=== PATIENT | male | born 1965 | race Caucasian/White ===

== ENCOUNTER 2022-01-22 12:49 | Emergency (ER) | payer MEDICARE, SELFPAY ==
[2022-01-22 12:52] VITALS: BP 163/88; PULSE 86; RESP 15; TEMP 36.7; O2SAT 98; BMI 34.0
[2022-01-22 12:58] VITALS: BP 163/88; PULSE 84; RESP 16; O2SAT 96
--- NOTE | 2022-01-22 13:42 | CT_ITS ---
STUDY: CT BRAIN WITHOUT CONTRAST REASON FOR EXAM: Male, 56 years old. Confusion RADIATION DOSAGE (If Supplied By Facility): CTDIvol = ( 47.06 ) mGy, DLP = ( 890.33 ) mGycm TECHNIQUE: Transaxial CT imaging of the brain was performed without administration of intravenous contrast material. Individualized dose optimization techniques were used for this CT. COMPARISON: No relevant priors. FINDINGS: Normal soft tissue structures. Normal calvarium. There is mild cerebral atrophy with widening of the extra-axial spaces and ventricular dilatation. There are areas of decreased attenuation within the white matter tracts of the supratentorial brain, consistent with microvascular disease changes. Findings suggestive several old lacunar infarcts in the basal ganglia and thalami. Normal brainstem. Normal cerebellum. There is no intracranial hemorrhage. There are no findings of an acute ischemic infarction. Atherosclerotic calcification of the cavernous portions of the internal carotid arteries bilaterally. Normal visualized paranasal sinuses. CT/Brain/Head without Contrast IMPRESSION: Chronic involutional changes of the brain. Electronically Signed: Soren Rodriguez MD at 15:16 EDT ,
--- NOTE | 2022-01-22 13:42 | EKG12_ITS ---
Test Reason : Blood Pressure : / mmHG Vent. Rate : 084 BPM Atrial Rate : 084 BPM P-R Int : 170 ms QRS Dur : 120 ms QT Int : 382 ms P-R-T Axes : 061 -75 082 degrees QTc Int : 451 ms Normal sinus rhythm Left anterior fascicular block Septal infarct , age undetermined Abnormal ECG Confirmed by YEMI BURT, BIB ([id number]), news copy editor AJ MURRELL ([id number]) on 01/24/2022 10:22:49 AM Referred By: ANITA Confirmed By:BIB BRAGG MD
--- NOTE | 2022-01-22 13:48 | EX.ED.DYSGE1 ---
HPI History of Present Illness Chief Complaint: Confusion Informant: patient and other Narrative Narrative: Slightly through the patient. The nurse taking care of him also was given report. He has been at [facility] for about 2 days. He has been reported as being alert and oriented x0 that whole time. He was transferred recently from [facility]. In the report they got they were told he was alert and oriented x2. However, they looked at the charting that came with him and it documents more that he is alert and oriented x0 at baseline. Therefore, he appears to be at his baseline. He was sent in here for confusion yet all indication is a he is at his baseline. He was also sent in here because he refused dialysis. He states he refused dialysis because he is already okay. He cannot elaborate more. When I talked to the patient he can tell me his name and the year and he is accurate. He cannot tell me the month or the president. But he is, in fact, alert and oriented x2. He has no complaints. He is a bit fidgety and slightly agitated but not aggressive. I note that he is on some medications for this. I also note that he has history of metabolic encephalopathy and vascular dementia along with his renal failure. [facility] Medical History (Updated 01/22/22 @ 15:[address] Ramsey Marley MD) Diabetes Dialysis patient Gastroparesis Hyperlipidemia Hyperparathyroidism due to end stage renal disease on dialysis Hypertension Kidney disease Metabolic encephalopathy Right below-knee amputee Stroke/cerebrovascular accident Vascular dementia Allergy/AdvReac Type Severity Reaction Status Date / Time Penicillins Allergy NEEDS Verified 01/22/22 12:52 FOLLOW-UP Social History Smoking Status: Never smoker ROS ROS ED ROS Narrative Patient denies all but due to his mental status I do not know if I am getting the accurate report. I am not able to get what I feel is a consistent and true review of systems EXAM Physical Exam Const Vital Signs: 01/22/22 12:52 01/22/22 12:58 Temperature 98.1 F Temperature Source Temporal Pulse Rate 86 84 Respiratory Rate 15 16 Blood Pressure 163/88 H 163/88 H Blood Pressure Mean 113 113 Pulse Ox 98 96 Oxygen Delivery Method Room Air Room Air Positive well nourished and well developed General Appearance ED: well developed and NAD; Negative for cyanotic or diaphoretic HEENT Reports moist mucous membranes Negative for trauma or tenderness Eyes General Eye ED: Negative for pale conjunctiva or scleral icterus Neck no JVD Chest Wall inspection of chest normal Resp normal respiratory effort and clear to auscultation bilaterally Auscultation: Negative for rales Cardio regular rate GI normal to inspection, nondistended, normoactive bowel sounds and non-tender Palpation: soft Back/Spine no CVA tenderness Extremity Extremity Narrative: Amputation right below the knee. Palpable dialysis access left upper extremity with good thrill. Neuro Neuro Narrative: Patient is actually oriented to his name and the year 2021. He cannot tell me the month but is frustrating that I am asking that again. He does not know the president. He cannot carry on a reasonable conversation but he is clearly a and O x2. Sensorium / Orientation: alert Psych Psych Narrative: Patient is mildly agitated. He is not at all aggressive. But he is fidgeting. He reaches out and holds and pats people. Skin no rashes or lesions noted MDM MDM MDM Narrative Medical decision making narrative: Patient's blood work showed normal white count hemoglobin. Electrolytes showed minimally decreased sodium. However his potassium is normal. Creatinine is quite high consistent with known renal failure. Glucose is 145. Calcium is also a little bit high. Troponin is negative. CT shows chronic changes of the brain. Chest x-ray shows mild cardiac enlargement. EKG shows nonspecific findings. Patient is at a nursing facility with dialysis capabilities. He does not need to stay in the hospital for dialysis. I have no indication by history exam or work-up that the patient has an acute decompensating illness. He is alert and oriented x2. This sounds equal or better than what he has been recently. I think he is safe to go back and continued his care at [facility]. I also note that his wristband lists him as DNR comfort care only. His chart and paperwork lists him as full code. We contacted the nursing center he is actually DNR Comfort Care arrest and they are sending paperwork to substantiate this. Lab Data Attestation: I reviewed the patient's lab results. Labs: Laboratory Results - last 24 hr 01/22/22 01/22/22 14:29 14:29 WBC 5.7 RBC 4.17 L Hgb 13.1 Hct 37.8 L MCV 90.6 MCH 31.4 MCHC 34.7 RDW Std Deviation 44.7 H RDW Coeff of Graciela 13.5 Plt Count 133 L MPV 10.4 Immature Gran % (Auto) 0.200 Neut % (Auto) 68.0 Lymph % (Auto) 17.4 L [place] % (Auto) 9.5 Eos % (Auto) 4.4 Baso % (Auto) 0.5 Absolute Neuts (auto) 3.9 Absolute Lymphs (auto) 0.99 Nucleated RBC % 0 Sodium 132 L Potassium 4.8 Chloride 97 L Carbon Dioxide 28.0 Anion Gap 7 BUN 46 H Creatinine 8.79 H* Estim Creat Clear Calc 8.47 Est GFR (MDRD) Af Amer 8 L Est GFR (MDRD) Non-Af 7 L BUN/Creatinine Ratio 5.2 L Glucose 145 H Calcium 10.4 H Troponin I High Sens 26 Radiography Diagnostic Testing: Clinical Impression(s) from Imaging Studies Brain CT 01/22/22 13:42 IMPRESSION: Chronic involutional changes of the brain. Electronically Signed: Soren Rodriguez MD at 15:16 EDT , Chest X-Ray 01/22/22 14:25 IMPRESSION: Mild cardiac enlargement. Electronically Signed: Soren Rodriguez MD at 15:24 EDT , EKG Initial EKG: Comments: EKG done as part of medical work-up read by me shows a normal sinus rhythm with overall rate of 84. No ectopy. Mild diffuse baseline changes. Slight LA elevation but still concave ST segments anteriorly. LA interval is normal. QRS duration is upper limit of normal. QTc is normal. I do not have an old for comparison. However we did order a troponin also with this. Discharge Plan Triage Chief Complaint: Confusion ED Provider: Ramsey Marley Dx/Rx/DC Orders Clinical Impression: Chronic renal failure, Transient confusion Instructions: ED Chronic Kidney Disease (CKD), ED Confusion Primary Care Provider: Jessica Hart Referrals: Jessica Hart MD [Primary Care Provider] - Keep Devendra appointment Disposition Disposition: Senior Living Facility Discharge Location: [facility]
--- NOTE | 2022-01-22 14:25 | RAD_ITS ---
STUDY: X-RAY CHEST REASON FOR EXAM: Male, 56 years old. Trauma TECHNIQUE: Single AP portable view of the chest. COMPARISON: None. FINDINGS: The lungs are clear and expanded. There is no demonstrated pleural abnormality. There is mild cardiac enlargement. Normal mediastinum and elis. Normal visualized pulmonary arteries. Normal visualized aortic arch and descending thoracic aorta. There are degenerative changes of the visualized thoracic spine. Normal visualized ribs, clavicles, and shoulders. There is no demonstrated abnormality of the visualized soft tissue structures of the upper abdomen. RAD/Chest 1 View (Portable) IMPRESSION: Mild cardiac enlargement. Electronically Signed: Soren Rodriguez MD at 15:24 EDT ,
[2022-01-22 14:37] LABS: Absolute Lymphocyte Count 0.99 X10^3/uL (0.83-4.51); Absolute Neutrophil Count 3.9 X10^3/uL (2.0-7.7); Basophil# 0.03 X10^3/uL; Basophil% 0.5 % (0-1); Eosinophil# 0.25 X10^3/uL; Eosinophils% 4.4 % (0-5); Hematocrit 37.8 % (40-54); Hemoglobin 13.1 g/dL (13.0-16.5); Lymphocyte # 0.99 X10^3/ul (0.83-4.51); Lymphocyte % 17.4 % (19-41); Mean Corp Hgb Conc 34.7 g/dL (32-36); Mean Corpuscular Hgb 31.4 pg (27.0-32.0); Mean Corpuscular Volume 90.6 fL (80-94); Mean Platelet Vol. 10.4 fl (6.2-12.0); Monocyte# 0.54 X10^3/uL; Monocyte% 9.5 % (0-10); NRBC Flagged by Analyzer 0 % (0-5); Neutrophil # 3.87 X10^3/uL (2.7-7.7); Platelet Count 133 K/mm3 (150-450); RBC Distribution Width CV 13.5 % (11.6-14.6); RBC Distribution Width SD 44.7 fl (35.1-43.9); Red Blood Count 4.17 M/mm3 (4.6-6.2); White Blood Count 5.7 K/mm3 (4.4-11.0)
[2022-01-22] MEDS: LORazepam 2 MG/ML Syringe 0.5 MG IV (14:38)
[2022-01-22 14:58] LABS: Anion Gap 7 (5-15); BUN 46 mg/dL (7-18); BUN/Creat Ratio 5.2 RATIO (10-20); Calcium,Total 10.4 mg/dL (8.5-10.1); Chloride 97 mmol/L (98-107); Creatinine, Serum 8.79 mg/dL (0.70-1.30); EST Glomerular Filtration Rate 7 mL/min (>60); Est Glom Filt Rate - Afr Amer 8 mL/min (>60); Estimated Creatinine Clearance 8.47 ml/min; Glucose 145 mg/dL (74-106); Potassium 4.8 mmol/L (3.5-5.1); Sodium Level 132 mmol/L (136-145); Troponin-I HS 26 pg/mL (3.0-78.0)
[2022-01-22 15:36] VITALS: PULSE 82; RESP 16; O2SAT 98
--- NOTE | 2022-01-22 15:37 | ED.RN ---
[facility] called to verify pt code status. pt was listed as full code on paperwork from [facility], but had a dnrcc wrist band in place. per resource development director pt is a dnrcc-a. was informed and documentation adjusted. alicia martin rn [id number]
--- NOTE | 2022-01-22 16:12 | ED.RN ---
report called to nate Martinez at [facility]. alicia martin rn [phone]
[2022-01-22 16:53] VITALS: BP 200/79; PULSE 83; RESP 15; O2SAT 98
== END 2022-01-22 16:54 | disposition skilled nursing facility (03) ==
PROVIDERS: Emergency Provider Emergency Medicine; PCP Internal Medicine; Visit Provider Emergency Medicine
DX: I12.0 Hypertensive chronic kidney disease with stage 5 chronic kidney disease or end stage renal disease (principal); Z89.511 Acquired absence of right leg below knee; E11.22 Type 2 diabetes mellitus with diabetic chronic kidney disease; N18.6 End stage renal disease; Z79.4 Long term (current) use of insulin; R41.0 Disorientation, unspecified; E78.5 Hyperlipidemia, unspecified; Z66 Do not resuscitate; Z79.899 Other long term (current) drug therapy; Z79.84 Long term (current) use of oral hypoglycemic drugs; Z86.73 Personal history of transient ischemic attack (TIA), and cerebral infarction without residual deficits
CPT/HCPCS: 70450; 71045; 80048; 84484; 85025; 93005; 96374; 99283; A4216

== ENCOUNTER → 2022-01-22 | Outpatient (REF) | payer SELFPAY ==
[2022-01-22 07:13] LABS: Absolute Lymphocyte Count 1.09 X10^3/uL (0.83-4.51); Absolute Neutrophil Count 3.9 X10^3/uL (2.0-7.7); Basophil# 0.03 X10^3/uL; Basophil% 0.5 % (0-1); Eosinophil# 0.34 X10^3/uL; Eosinophils% 5.7 % (0-5); Hemoglobin 13.3 g/dL (13.0-16.5); Lymphocyte # 1.09 X10^3/ul (0.83-4.51); Lymphocyte % 18.3 % (19-41); Mean Corp Hgb Conc 34.1 g/dL (32-36); Mean Corpuscular Hgb 30.9 pg (27.0-32.0); Mean Corpuscular Volume 90.7 fL (80-94); Mean Platelet Vol. 10.9 fl (6.2-12.0); Monocyte# 0.58 X10^3/uL; Monocyte% 9.7 % (0-10); NRBC Flagged by Analyzer 0 % (0-5); Neutrophil % 65.5 % (47-70); Platelet Count 130 K/mm3 (150-450); RBC Distribution Width CV 13.5 % (11.6-14.6); RBC Distribution Width SD 45.1 fl (35.1-43.9)
[2022-01-22 07:33] LABS: Hemoglobin A1c 5.5 % (3.8-5.6)
[2022-01-22 07:36] LABS: ALB/GLOB Ratio 0.9 RATIO (0.9-2.4); AST(SGOT) 14 U/L (15-37); Alanine Aminotransfer ALT/SGPT 26 U/L (16-61); Albumin, Serum 3.5 g/dL (3.2-5.0); Alkaline Phosphatase 76 U/L (45-117); Anion Gap 7 (5-15); BUN 39 mg/dL (7-18); Calcium,Total 10.2 mg/dL (8.5-10.1); Chloride 97 mmol/L (98-107); Creatinine, Serum 7.85 mg/dL (0.70-1.30); EST Glomerular Filtration Rate 8 mL/min (>60); Est Glom Filt Rate - Afr Amer 9 mL/min (>60); Globulin 3.8 g/dL (2.2-4.2); Glucose 114 mg/dL (74-106); Magnesium 2.5 mg/dL (1.6-2.6); Phosphorus 3.2 mg/dL (2.5-4.9); Potassium 4.4 mmol/L (3.5-5.1); Protein, Total 7.3 g/dL (6.4-8.2); Sodium Level 132 mmol/L (136-145); Thyroid Stim Hormone (TSH) 4.45 uIU/mL (0.358-3.74)
[2022-01-22 07:52] LABS: Vitamin B12 611 pg/mL (211-911)
== END | disposition home or self-care (01) ==
LOC: OLS.SW1020 04:00
PROVIDERS: Referring Provider Internal Medicine; Visit Provider Internal Medicine
DX: Z02.2 Encounter for examination for admission to residential institution (principal); E11.9 Type 2 diabetes mellitus without complications; I10 Essential (primary) hypertension; E78.5 Hyperlipidemia, unspecified
CPT/HCPCS: 36415; 80053; 82607; 83036; 83735; 84100; 84443; 85025

== ENCOUNTER → 2022-01-29 | Outpatient (REF) | payer SELFPAY ==
[2022-01-29 07:41] LABS: Hematocrit 35.6 % (40-54); Mean Corp Hgb Conc 33.7 g/dL (32-36); Mean Corpuscular Hgb 30.8 pg (27.0-32.0); Mean Corpuscular Volume 91.5 fL (80-94); Mean Platelet Vol. 10.8 fl (6.2-12.0); Platelet Count 117 K/mm3 (150-450); RBC Distribution Width CV 13.2 % (11.6-14.6); RBC Distribution Width SD 44.6 fl (35.1-43.9); Red Blood Count 3.89 M/mm3 (4.6-6.2); White Blood Count 6.3 K/mm3 (4.4-11.0)
[2022-01-29 08:38] LABS: Albumin, Serum 3.4 g/dL (3.2-5.0); BUN 77 mg/dL (7-18); BUN/Creat Ratio 5.9 RATIO (10-20); Calcium,Total 9.6 mg/dL (8.5-10.1); Chloride 97 mmol/L (98-107); EST Glomerular Filtration Rate 4 mL/min (>60); Glucose 125 mg/dL (74-106); Phosphorus 3.1 mg/dL (2.5-4.9); Potassium 5.4 mmol/L (3.5-5.1); Sodium Level 132 mmol/L (136-145)
[2022-01-29 08:39] LABS: Est Glom Filt Rate - Afr Amer 5 mL/min (>60)
== END | disposition home or self-care (01) ==
LOC: OLS.SW1020 05:00
PROVIDERS: PCP Internal Medicine; Referring Provider Internal Medicine; Visit Provider Internal Medicine
DX: N18.6 End stage renal disease (principal)
CPT/HCPCS: 36415; 80069; 85027

== ENCOUNTER → 2022-02-05 | Outpatient (REF) | payer SELFPAY ==
[2022-02-05 08:19] LABS: Hemoglobin 11.1 g/dL (13.0-16.5); Mean Corp Hgb Conc 33.6 g/dL (32-36); Mean Corpuscular Hgb 30.7 pg (27.0-32.0); Mean Corpuscular Volume 91.4 fL (80-94); Mean Platelet Vol. 10.5 fl (6.2-12.0); Platelet Count 100 K/mm3 (150-450); RBC Distribution Width CV 12.6 % (11.6-14.6); RBC Distribution Width SD 42.3 fl (35.1-43.9); Red Blood Count 3.61 M/mm3 (4.6-6.2); White Blood Count 5.3 K/mm3 (4.4-11.0)
[2022-02-05 08:28] LABS: Albumin, Serum 3.1 g/dL (3.2-5.0); BUN 77 mg/dL (7-18); BUN/Creat Ratio 6.3 RATIO (10-20); Chloride 97 mmol/L (98-107); EST Glomerular Filtration Rate 5 mL/min (>60); Est Glom Filt Rate - Afr Amer 6 mL/min (>60); Glucose 133 mg/dL (74-106); Phosphorus 2.4 mg/dL (2.5-4.9); Potassium 5.7 mmol/L (3.5-5.1); Sodium Level 133 mmol/L (136-145)
== END | disposition home or self-care (01) ==
LOC: OLS.SW1020 05:00
PROVIDERS: PCP Internal Medicine; Visit Provider Internal Medicine
DX: G93.41 Metabolic encephalopathy (principal); N18.6 End stage renal disease
CPT/HCPCS: 36415; 80069; 85027